=== PATIENT | female | born 1970 | race Caucasian/White ===

== ENCOUNTER 2024-12-10 06:55 | Emergency (ER) | payer MEDICAID ==
[~2024-12-10] VITALS: Ht 152.4 cm; Wt 65.0 kg
[2024-12-10 07:08] VITALS: O2SAT 99
[2024-12-10] MEDS: ACETAMINOPHEN 500MG TABLET PO ONE (07:56)
[2024-12-10] MEDS ORDERED: IBUP-2030 MT (08:53)
[2024-12-10 09:06] VITALS: BP 140/70; PULSE 81; RESP 16; TEMP 37.1; O2SAT 99
== END 2024-12-10 09:02 | disposition home or self-care (01) ==
LOC: ER 06:55
DX: M54.2 Cervicalgia (principal); M54.9 Dorsalgia, unspecified
CPT/HCPCS: 72052; 99283